=== PATIENT | female | born 1985 | race American Indian/Alaskan Native ===

== ENCOUNTER 2018-03-30 18:13 | Day surgery (SDC) | payer OTHER ==
[~2018-03-30] VITALS: Ht 254 cm; Wt 113.4 kg
[~2018-03-30 18:13] MED LIST: PERCOCET 5/3251 TAB PO
== END 2018-03-31 | disposition home or self-care (01) ==
LOC: ER 18:13 → CIR.AMB 03-31 08:14
DX: O03.4 Incomplete spontaneous abortion without complication (principal)